=== PATIENT | female | born 1990 | race Caucasian/White ===

== ENCOUNTER 2017-05-25 09:39 | Emergency (ER) | payer OTHER ==
[2017-05-25 09:52] VITALS: BP 123/85; PULSE 91; RESP 18; TEMP 97.9; O2SAT 98
--- NOTE | 2017-05-25 10:14 | EDPHY ---
H & P Time Seen by Provider: 05/25/17 09:47 HPI/ROS: 26-year-old female presents complaining of sore throat for approximately 4 days , also with some runny nose and mild cough. Review of systems As per HPI General no fever no chills no weakness HEENT no eye pain no eye discharge. No eye redness, positive sore throat, positive cold symptoms Respiratory mild cough, no shortness of breath Cardiac no chest pain, no peripheral edema GI no abdominal pain, no diarrhea, no constipation, no nausea, no vomiting no flank pain, no hematuria, no dysuria Musculoskeletal no myalgias, no joint pain Heme no easy bruising, no easy bleeding Endo no polyuria, no polydipsia Skin no rashes, no pruritus Neuro no syncope, no dizziness, no headaches Psych is no suicidal ideation, no homicidal ideation Past Medical/Surgical History: Noncontributory Social History: Denies alcohol or drug use Smoking Status: Never smoked Physical Exam: 26-year-old female Alert and oriented nontoxic appearance, no acute distress afebrile Atraumatic normocephalic Extraocular muscles intact, anicteric Nares mild yellowish discharge Oropharynx mild erythema no tonsillar swelling no exudate no uvular deviation, tolerating own secretions Neck supple no lymphadenopathy Lungs clear to auscultation bilaterally Heart regular rate and rhythm Abdomen normoactive bowel sounds soft nontender Extremities no cyanosis clubbing or edema Skin no rash Constitutional: Initial Vital Signs Temperature (C) 36.6 C 05/25/17 09:50 Heart Rate 91 05/25/17 09:50 Respiratory Rate 18 05/25/17 09:50 Blood Pressure 123/85 H 05/25/17 09:50 O2 Sat (%) 98 05/25/17 09:50 O2 Delivery Mode Room Air Allergies/Adverse Reactions: No Known Allergies Allergy (Unverified 05/25/17 09:49) Home Medications: Medication Instructions Recorded Control 05/25/17 Medical Decision Making ED Course/Re-evaluation: Patient seen and evaluated for sore throat and cold symptoms of 4 days duration. Rapid strep negative Impression Viral syndrome URI Pharyngitis Plan Symptomatic care Rest, acetaminophen, ibuprofen as needed for pain Follow up with primary care physician if not improving Differential Diagnosis: URI, bronchitis, pharyngitis, strep pharyngitis, pneumonia, viral syndrome - Data Points Laboratory Results: 05/25/17 05/25/17 Unknown 09:45 Group A Strep Screen NEGATIVE (NEGATIVE) Group A Strep DNA NEGATIVE (NEGATIVE) Departure - Departure Disposition: Home, Routine, Self-Care Clinical Impression: Acute pharyngitis, Viral syndrome Condition: Good Instructions: Pharyngitis (ED), Viral Syndrome (ED) Referrals: DAVID MCDONOUGH [Primary Care Provider] - As per Instructions
== END 2017-05-25 10:18 | disposition home or self-care (01) ==
LOC: CED 09:39
DX: J02.9 Acute pharyngitis, unspecified (principal); B34.9 Viral infection, unspecified
CPT/HCPCS: 87880-PO

== ENCOUNTER 2017-07-28 08:36 | Emergency (ER) | payer OTHER ==
[2017-07-28 08:46] VITALS: RESP 16
[2017-07-28] MEDS ORDERED: ONDANSETRON 4 MG/2 ML VIAL IVP ONE (09:10)
[2017-07-28] MEDS ORDERED: NS 1,000 ML IV ONE (09:10)
--- NOTE | 2017-07-28 09:18 | EDPHY ---
H & P Time Seen by Provider: 07/28/17 08:43 HPI/ROS: 26-year-old female presents complaining of severe fatigue, just not feeling well , sore throat And generalized weakness. She was seen here in May with a viral pharyngitis. She states in early July she was seen at her clinic for likely flu and/or viral illness that lasted close to 2 weeks. Yesterday she saw her provider relations specialist and was diagnosed with urinary tract infection and started on Macrobid she has taken 1 dose of Macrobid. She states today she just feels "awful ", with generalized weakness like she can barely stand up. Review of systems As per HPI General no fever no chills positive weakness and fatigue HEENT no eye pain no eye discharge. No eye redness, positive sore throat Respiratory no cough, no shortness of breath Cardiac no chest pain, no peripheral edema GI no abdominal pain, no diarrhea, no constipation, positive nausea, no vomiting no flank pain, no hematuria, positive dysuria Musculoskeletal no myalgias, no joint pain Heme no easy bruising, no easy bleeding Endo no polyuria, no polydipsia Skin no rashes, no pruritus Neuro no syncope, no dizziness, no headaches Psych is no suicidal ideation, no homicidal ideation Past Medical/Surgical History: Pharyngitis, UTI Social History: Denies alcohol or drug use Smoking Status: Never smoked Physical Exam: 26-year-old female Alert and oriented in no acute distress nontoxic appearance, afebrile Atraumatic normocephalic Extraocular muscles intact, anicteric Neck-supple, positive anterior cervical lymphadenopathy mildly tender to palpation Oropharynx positive enlarged tonsils, erythematous, no uvular deviation, no purulent exudate, tolerating own secretions, no trismus Lungs clear to auscultation bilaterally Heart regular rate and rhythm Abdomen normoactive bowel sounds soft nontender Extremities no cyanosis clubbing edema Skin no rash Constitutional: Initial Vital Signs Temperature (C) 36.9 C 07/28/17 08:43 Heart Rate 109 H 07/28/17 08:43 Respiratory Rate 16 07/28/17 08:43 Blood Pressure 144/89 H 07/28/17 08:43 O2 Sat (%) 97 07/28/17 08:43 O2 Delivery Mode Room Air Allergies/Adverse Reactions: No Known Allergies Allergy (Verified 07/28/17 08:46) Home Medications: Medication Instructions Recorded Macrobid 07/28/17 Nieves 28 Tablet 07/28/17 Medical Decision Making ED Course/Re-evaluation: Patient seen and evaluated for fatigue, weakness, sore throat with nausea and recent diagnosis of UTI. The patient is mildly tachycardic and appears ill however nontoxic. Labs were sent I will check influenza, strep, basic labs and she will be given IV fluid hydration as well as ondansetron for nausea. Influenza negative Strep negative negative Mccracken positive CBC within normal limits CMP within normal limits Urinalysis positive for nitrites, leuk esterase, white blood cells, bacteria Urine culture pending Patient was given 1 L normal saline, ondansetron for nausea. Additionally she was given ceftriaxone 1 g IV piggyback to cover her urinary tract infection given her nausea and my fear that she may not tolearte her antibiotic, she was advised to continue her macrobid at home. Extensive education on Mccracken, cautions reguarding potential splenic enlargement Imp Mccracken UTI Plan Home symptomatic/supportive care follow up with clinica in 1-2 weeks - Data Points Laboratory Results: Laboratory Results 07/28/17 09:30 07/28/17 09:30 07/28/17 07/28/17 07/28/17 Unknown 09:30 09:30 WBC RBC Hgb Hct MCV MCH MCHC RDW Plt Count MPV Neut % (Auto) Lymph % (Auto) M[place]rack[place] % (Auto) Eos % (Auto) Baso % (Auto) Nucleat RBC Rel Count Absolute Neuts (auto) Absolute Lymphs (auto) Absolute Monos (auto) Absolute Eos (auto) Absolute Basos (auto) Absolute Nucleated RBC Immature Gran % Immature Gran # Sodium Potassium Chloride Carbon Dioxide Anion Gap BUN Creatinine Estimated GFR Glucose Calcium Total Bilirubin AST ALT Alkaline Phosphatase Total Protein Albumin Urine Color YELLOW Urine Appearance HAZY Urine pH 6.0 (5.0-7.5) Ur Specific [place] 1.025 (1.002-1.030) Urine Protein 1+ H (NEGATIVE) Urine Ketones 2+ H (NEGATIVE) Urine Blood 2+ H (NEGATIVE) Urine Nitrate NEGATIVE (NEGATIVE) Urine Bilirubin NEGATIVE (NEGATIVE) Urine Urobilinogen 0.2 EU EU (0.2-1.0) Ur Leukocyte Esterase TRACE H (NEGATIVE) Urine RBC 5-10 /hpf H /hpf (0-3) Urine WBC 15-25 /hpf H /hpf (0-3) Ur Epithelial Cells 2+ /lpf H /lpf (NONE-1+) Urine Bacteria 1+ /hpf H /hpf (NONE SEEN) Urine Mucus 2+ /lpf H /lpf (NONE-1+) Urine Glucose NEGATIVE (NEGATIVE) Urine Test Monoscreen POSITIVE H (NEGATIVE) Influenza A,B Rapid Group A Strep Screen Group A Strep DNA Pending 07/28/17 07/28/17 07/28/17 09:30 09:30 09:30 WBC 9.25 10^3/uL 10^3/uL (3.80-9.50) RBC 5.34 10^6/uL H 10^6/uL (4.18-5.33) Hgb 15.9 g/dL g/dL (12.6-16.3) Hct 45.7 % % (38.0-47.0) MCV 85.6 fL fL (81.5-99.8) MCH 29.8 pg pg (27.9-34.1) MCHC 34.8 g/dL g/dL (32.4-36.7) RDW 12.3 % % (11.5-15.2) Plt Count 159 10^3/uL 10^3/uL (150-400) MPV 9.6 fL fL (8.7-11.7) Neut % (Auto) 79.4 % H % (39.3-74.2) Lymph % (Auto) 14.7 % L % (15.0-45.0) M[place]racken % (Auto) 4.9 % % (4.5-13.0) Eos % (Auto) 0.2 % L % (0.6-7.6) Baso % (Auto) 0.5 % % (0.3-1.7) Nucleat RBC Rel Count 0.0 % % (0.0-0.2) Absolute Neuts (auto) 7.34 10^3/uL H 10^3/uL (1.70-6.50) Absolute Lymphs (auto) 1.36 10^3/uL 10^3/uL (1.00-3.00) Absolute Monos (auto) 0.45 10^3/uL 10^3/uL (0.30-0.80) Absolute Eos (auto) 0.02 10^3/uL L 10^3/uL (0.03-0.40) Absolute Basos (auto) 0.05 10^3/uL 10^3/uL (0.02-0.10) Absolute Nucleated RBC 0.00 10^3/uL 10^3/uL (0-0.01) Immature Gran % 0.3 % % (0.0-1.1) Immature Gran # 0.03 10^3/uL 10^3/uL (0.00-0.10) Sodium 140 mEq/L mEq/L (135-145) Potassium 3.7 mEq/L mEq/L (3.5-5.2) Chloride 99 mEq/L mEq/L (97-110) Carbon Dioxide 25 mEq/l mEq/l (22-31) Anion Gap 16 mEq/L mEq/L (8-16) BUN 8 mg/dL mg/dL (7-23) Creatinine 0.9 mg/dL mg/dL (0.6-1.0) Estimated GFR > 60 Glucose 88 mg/dL mg/dL (70-100) Calcium 9.0 mg/dL mg/dL (8.5-10.4) Total Bilirubin 0.6 mg/dL mg/dL (0.1-1.4) AST 13 IU/L L IU/L (14-46) ALT 25 IU/L IU/L (9-52) Alkaline Phosphatase 44 IU/L IU/L (38-126) Total Protein 7.3 g/dL g/dL (6.3-8.2) Albumin 4.1 g/dL g/dL (3.5-5.0) Urine Color Urine Appearance Urine pH Ur Specific [place] Urine Protein Urine Ketones Urine Blood Urine Nitrate Urine Bilirubin Urine Urobilinogen Ur Leukocyte Esterase Urine RBC Urine WBC Ur Epithelial Cells Urine Bacteria Urine Mucus Urine Glucose Urine Test NEGATIVE Monoscreen Influenza A,B Rapid Group A Strep Screen Group A Strep DNA 07/28/17 07/28/17 09:24 09:24 WBC RBC Hgb Hct MCV MCH MCHC RDW Plt Count MPV Neut % (Auto) Lymph % (Auto) [place] % (Auto) Eos % (Auto) Baso % (Auto) Nucleat RBC Rel Count Absolute Neuts (auto) Absolute Lymphs (auto) Absolute Monos (auto) Absolute Eos (auto) Absolute Basos (auto) Absolute Nucleated RBC Immature Gran % Immature Gran # Sodium Potassium Chloride Carbon Dioxide Anion Gap BUN Creatinine Estimated GFR Glucose Calcium Total Bilirubin AST ALT Alkaline Phosphatase Total Protein Albumin Urine Color Urine Appearance Urine pH Ur Specific [place] Urine Protein Urine Ketones Urine Blood Urine Nitrate Urine Bilirubin Urine Urobilinogen Ur Leukocyte Esterase Urine RBC Urine WBC Ur Epithelial Cells Urine Bacteria Urine Mucus Urine Glucose Urine Test Monoscreen Influenza A,B Rapid NEGATIVE FOR FLU (NEGATIVE) Group A Strep Screen NEGATIVE (NEGATIVE) Group A Strep DNA Medications Given: Discontinued Medications Sodium Chloride (Ns) 1,000 mls @ 0 mls/hr IV ONCE ONE PRN Reason: Wide Open Stop: 07/28/17 09:11 Last Admin: 07/28/17 09:24 Dose: 1,000 mls Ceftriaxone Sodium 1 gm/ (Sterile Water) 10 mls @ 150 mls/hr IV EDNOW ONE PRN Reason: Protocol Stop: 07/28/17 10:06 Last Admin: 07/28/17 10:10 Dose: 10 mls Ondansetron HCl (Zofran) 4 mg IVP EDNOW ONE Stop: 07/28/17 09:11 Last Admin: 07/28/17 09:24 Dose: 4 mg Departure - Departure Disposition: Home, Routine, Self-Care Clinical Impression: Mononucleosis, Urinary tract infection Condition: Good Instructions: Mononucleosis (ED), Urinary Tract Infection in Women (ED) Referrals: NONE *PRIMARY CARE P,. [Primary Care Provider] - As per Instructions Stand Alone Forms: Work Excuse
[2017-07-28 09:34] LABS: PLATELET COUNT 159 10^3/uL (150-400)
[2017-07-28] MEDS ORDERED: cefTRIAXone 1 GM in STERILE WATER INJ 10 ML IV ONE (10:03)
[2017-07-28] MEDS ORDERED: cefTRIAXone 1 GM VIAL ONE (10:08)
[2017-07-28 10:41] VITALS: BP 122/84; PULSE 105; TEMP 99.1; O2SAT 98
== END 2017-07-28 10:35 | disposition home or self-care (01) ==
LOC: CED 08:36
DX: N39.0 Urinary tract infection, site not specified (principal); B96.89 Other specified bacterial agents as the cause of diseases classified elsewhere; B27.90 Infectious mononucleosis, unspecified without complication
CPT/HCPCS: 80053-PO; 81003-PO; 81015-PO; 81025-PO; 85025-PO; 86308-PO; 87400-PO; 87880-PO; 96374; J0696; J2405